=== PATIENT | female | born 1955 | race Caucasian/White ===

== ENCOUNTER 2021-05-14 02:25 | Inpatient (IN) | payer MEDICARE, MEDICAID ==
[2021-05-14 04:46] VITALS: BMI 45.5
[2021-05-14] MEDS ORDERED: Diltiazem HCl 125 MG, Admixture Fee 1 EACH in Sodium Chloride 0.9% 100 ML IVPB SCH (05:15)
[2021-05-14] MEDS ORDERED: Guaifenesin DM 100-10/5 ML UDCUP PO PRN (07:34)
[2021-05-14] MEDS ORDERED: Calcium Carbonate 500 MG ChewTAB PO PRN (07:34)
[2021-05-14] MEDS ORDERED: Acetaminophen 325 MG TAB PO PRN (07:34)
[2021-05-14] MEDS ORDERED: Ondansetron ODT 4 MG TAB PO PRN (07:34)
[2021-05-14] MEDS ORDERED: Senokot S 8.6-50 MG TAB PO PRN (07:34)
[2021-05-14] MEDS ORDERED: Pharmacy to Dose REMDESIVIR IVPB PRN (07:44)
[2021-05-14] MEDS ORDERED: Benzonatate 100 MG CAP PO PRN (07:45)
[2021-05-14] MEDS ORDERED: Ipratropium Oral Inhaler INH PRN (08:17)
[2021-05-14] MEDS ORDERED: Dextrose 5% in Water 1,000 ML IV PRN (08:18)
[2021-05-14] MEDS ORDERED: Dextrose 50% Abboject 50 ML SYRINGE SLOW IVP PRN (08:18)
[2021-05-14] MEDS ORDERED: HumaLOG 300 UNITS/3 ML VIAL SC PRN (08:18)
[2021-05-14 08:39] LABS: #Eosinphils 0.1 thou/uL (0.0-0.7); #Lymphocytes 0.8 thou/uL (1.20-3.40); #Monocytes 0.1 thou/uL (0.11-0.59); #Neutrophils 6.2 thou/uL (1.40-6.50); %Basophils 0.2 % (0.0-1.0); %Eosinophils 0.9 % (0.0-10.0); %Lymphocytes 10.5 % (21.0-51.0); %Monocytes 1.8 % (0.0-10.0); %Neutrophils 86.6 % (42.0-75.0); Hemoglobin 14.5 g/dL (12.0-16.0); Mean Corpuscular HGB CONC 34.3 g/dL (32.0-36.0); Mean Corpuscular Hemoglobin 33.6 pg (27.0-31.0); Mean Corpuscular Volume 97.9 fL (78.0-98.0); Mean Platelet Volume 7.9 fL (7.4-10.4); Platelet Count 219 thou/uL (130-400); White Blood Cell (WBC) Count 7.1 thou/uL (4.8-10.8)
[2021-05-14 08:58] LABS: Lactic Acid 1.5 mmol/L (0.5-2.2)
[2021-05-14 08:59] LABS: Anion Gap 14 mmol/L (10-20); BUN (Urea Nitrogen) 14 mg/dL (9.8-20.1); Calc. Creatinine Clearance 149 mL/min (70-130); Calcium 9.6 mg/dL (7.8-10.44); Carbon Dioxide 21 mmol/L (23-31); Chloride 101 mmol/L (98-107); Glucose 183 mg/dL (80-115); Potassium 4.4 mmol/L (3.5-5.1); Sodium 132 mmol/L (136-145)
[2021-05-14] MEDS ORDERED: REMDESIVIR 200 MG in Sodium Chloride 0.9% 250 ML 210 ML IV SCH (10:00)
[2021-05-14] MEDS: Zinc Sulfate 220 MG CAP PO SCH (10:19)
[2021-05-14] MEDS: Ascorbic Acid 500 mg Chewable Tablet PO SCH (10:19)
[2021-05-14] MEDS: Cholecalciferol 1,000 UNITS (25 MCG) TAB PO SCH (10:19)
[2021-05-14] MEDS: Apixaban 5 MG TAB PO SCH ×2 (10:20→20:18)
[2021-05-14] MEDS: Lisinopril 10 MG TAB PO SCH (10:20)
[2021-05-14] MEDS: Furosemide 20 MG TAB PO SCH ×2 (10:20→20:19)
[2021-05-14] MEDS: Cyclobenzaprine 10 MG TAB PO SCH ×3 (10:20→20:19)
[2021-05-14] MEDS: Carvedilol 6.25 MG TAB PO SCH ×2 (10:20→20:18)
[2021-05-14] MEDS: Gabapentin 300 MG CAP PO SCH ×2 (10:21→20:19)
[2021-05-14] MEDS: Potassium Chloride 8 MEQ TAB PO SCH (10:22)
[2021-05-14] MEDS: Dexamethasone 4 mg/ml Vial SLOW IVP SCH (10:23)
[2021-05-14] MEDS: HumaLOG 300 UNITS/3 ML VIAL SC PRN ×2 (11:43→16:40)
[2021-05-14] MEDS: Mometasone 200 MCG/Formoterol 5 MCG 120 PUFF INHALER INH SCH (18:27)
[2021-05-14 19:34] LABS: Bilirubin Negative (Negative); Blood, Urine Negative (Negative); Clarity Turbid (Clear); Glucose, Urine (Dipstick) Normal (Negative); Ketone, Urine Negative (Negative); Leukocyte 500 Leu/uL (Negative); Nitrite Negative (Negative); Protein, Urine (Dipstick) 10 mg/dL (Neg-Trace); RBC/HPF 0-3 HPF (0-3); Specific Gravity, Urine 1.016 (1.002-1.036); Squamous Epithelial 0-3 HPF (0-3); Urobilinogen Normal mg/dL (Less than 2)
[2021-05-14 19:51] LABS: Bacteria/HPF 3+ HPF (None Seen); WBC/HPF Greater than 50 HPF (0-3)
[2021-05-15 05:36] LABS: #Lymphocytes 0.8 thou/uL (1.20-3.40); #Monocytes 0.6 thou/uL (0.11-0.59); %Basophils 0.2 % (0.0-1.0); %Eosinophils 0.4 % (0.0-10.0); %Lymphocytes 10.9 % (21.0-51.0); %Monocytes 7.6 % (0.0-10.0); Hemoglobin 13.3 g/dL (12.0-16.0); Mean Corpuscular HGB CONC 32.8 g/dL (32.0-36.0); Mean Corpuscular Hemoglobin 32.2 pg (27.0-31.0); Mean Corpuscular Volume 98.1 fL (78.0-98.0); Mean Platelet Volume 7.6 fL (7.4-10.4); Platelet Count 233 thou/uL (130-400); Red Blood Cell (RBC) Count 4.14 mill/uL (4.20-5.40); White Blood Cell (WBC) Count 7.4 thou/uL (4.8-10.8)
[2021-05-15 05:43] LABS: Hemoglobin A1c 6.2 % (4.0-6.0)
[2021-05-15 05:54] LABS: Anion Gap 11 mmol/L (10-20); BUN (Urea Nitrogen) 21 mg/dL (9.8-20.1); Calc. Creatinine Clearance 145 mL/min (70-130); Calcium 9.5 mg/dL (7.8-10.44); Carbon Dioxide 27 mmol/L (23-31); Chloride 104 mmol/L (98-107); Glucose 137 mg/dL (80-115); Magnesium 2.3 mg/dL (1.6-2.6); Potassium 4.7 mmol/L (3.5-5.1); Sodium 137 mmol/L (136-145)
[2021-05-15 05:56] LABS: ALT (SGPT) 33 U/L (8-55); AST (SGOT) 48 U/L (5-34); Albumin 3.3 g/dL (3.4-4.8); Alkaline Phosphatase 107 U/L (40-110); Bilirubin, Direct 0.2 mg/dL (0.1-0.3); Bilirubin, Total 0.3 mg/dL (0.2-1.2); Protein, Total 7.3 g/dL (5.8-8.1)
[2021-05-15] MEDS: Mometasone 200 MCG/Formoterol 5 MCG 120 PUFF INHALER INH SCH (08:01)
[2021-05-15] MEDS: Ascorbic Acid 500 mg Chewable Tablet PO SCH (08:27)
[2021-05-15] MEDS: Apixaban 5 MG TAB PO SCH (08:27)
[2021-05-15] MEDS: Cyclobenzaprine 10 MG TAB PO SCH ×2 (08:28→14:11)
[2021-05-15] MEDS: Carvedilol 6.25 MG TAB PO SCH (08:28)
[2021-05-15] MEDS: Dexamethasone 4 mg/ml Vial SLOW IVP SCH (08:28)
[2021-05-15] MEDS: Cholecalciferol 1,000 UNITS (25 MCG) TAB PO SCH (08:28)
[2021-05-15] MEDS: Gabapentin 300 MG CAP PO SCH (08:29)
[2021-05-15] MEDS: Lisinopril 10 MG TAB PO SCH (08:29)
[2021-05-15] MEDS: Furosemide 20 MG TAB PO SCH (08:29)
[2021-05-15] MEDS: Zinc Sulfate 220 MG CAP PO SCH (08:30)
[2021-05-15] MEDS: Potassium Chloride 8 MEQ TAB PO SCH (08:30)
[2021-05-15] MEDS ORDERED: REMDESIVIR 100 MG in Sodium Chloride 0.9% 250 ML 230 ML IV SCH (09:00)
[2021-05-15 11:15] VITALS: BP 171/84; TEMP 97.9
== END 2021-05-15 17:10 | disposition home or self-care (01) | DRG 177 ==
LOC: 2SW 04:04 → OBSVTOIN 07:41
PROVIDERS: ADMIT Student in an Organized Health Care Education/Training Program; ATTEND Internal Medicine
PROC: 8E0ZXY6 Isolation (ICD-10-PCS; principal; 2021-05-14)
PROC: XW033E5 Introduction of Remdesivir Anti-infective into Peripheral Vein, Percutaneous Approach, New Technology Group 5 (ICD-10-PCS; 2021-05-14)
PROC: 3E0333Z Introduction of Anti-inflammatory into Peripheral Vein, Percutaneous Approach (ICD-10-PCS; 2021-05-14)
DX: U07.1 COVID-19 (principal); J12.82 Pneumonia due to coronavirus disease 2019; E87.2 Acidosis; Z66 Do not resuscitate; J44.0 Chronic obstructive pulmonary disease with (acute) lower respiratory infection; I11.0 Hypertensive heart disease with heart failure; R73.9 Hyperglycemia, unspecified; F41.9 Anxiety disorder, unspecified; F32.A Depression, unspecified; I48.0 Paroxysmal atrial fibrillation; I50.9 Heart failure, unspecified; E66.01 Morbid (severe) obesity due to excess calories; R09.02 Hypoxemia; Z68.42 Body mass index [BMI] 45.0-49.9, adult; Z79.01 Long term (current) use of anticoagulants; Z79.51 Long term (current) use of inhaled steroids; Z79.899 Other long term (current) drug therapy
CPT/HCPCS: 36415; 36416; 80048; 80076; 81001; 82728; 83036; 83605; 83735; 85025; 85379; 86140; J1100; J1815; J7050